=== PATIENT | male | born 1940 | race Hispanic/Latino ===

== ENCOUNTER 2022-02-01 15:03 | Emergency (ER) | payer MEDICARE, BC ==
[2022-02-02 16:35] LABS: SARS-CoV-2 PCR by NAA Not Detected (NotDetected)
== END 2022-02-01 17:11 | disposition home or self-care (01) ==
LOC: CSHERS 15:03
DX: B34.9 Viral infection, unspecified (principal); I10 Essential (primary) hypertension; Z20.822 Contact with and (suspected) exposure to COVID-19; Z86.16 Personal history of COVID-19; Z87.19 Personal history of other diseases of the digestive system; Z86.718 Personal history of other venous thrombosis and embolism; Z87.891 Personal history of nicotine dependence
CPT/HCPCS: 87804 ×2; U0003; U0005; 99283

== ENCOUNTER 2025-10-13 14:04 | Emergency (ER) | payer OTHER, BC ==
[2025-10-13 15:03] LABS: #Basophils Less than 0.03 10x3/uL (0.0-0.2); #Eosinophils 0.46 10x3/uL (0.0-0.5); #Monocytes 0.59 10x3/uL (0.0-1.1); #Neutrophils 2.96 10x3/uL (1.5-8.4); %Basophils 0.4 % (0.0-2.0); %Eosinophils 8.1 % (0.0-6.0); %Lymphocytes 28.6 % (18.0-47.0); %Monocytes 10.4 % (0.0-10.0); %Neutrophils 52.1 % (40.0-75.0); Hematocrit 28.5 % (38.8-50.0); Hemoglobin 9.5 g/dL (13.5-17.5); Mean Corpuscular Hemoglobin 30.2 pg (27.0-33.0); Mean Corpuscular Volume 90.5 fL (81.2-95.1); Platelet Count 141 10x3/uL (150-450); Red Blood Cell (RBC) Count 3.15 10x6/uL (4.32-5.72); White Blood Cell (WBC) Count 5.67 10x3/uL (3.5-10.5)
[2025-10-13 15:19] LABS: ALT (SGPT) 15 U/L (Less than 45); AST (SGOT) 24 U/L (11-34); Albumin 3.2 g/dL (3.1-4.5); Alkaline Phosphatase 143 U/L (40-110); Anion Gap 13 mmol/L (10-20); BUN (Urea Nitrogen) 50 mg/dL (8.4-25.7); Bilirubin, Total 0.4 mg/dL (0.3-1.2); Calc. Creatinine Clearance 0 mL/min (70-130); Calcium 8.3 mg/dL (7.8-10.44); Carbon Dioxide 21 mmol/L (23-31); Chloride 111 mmol/L (98-107); Globulin 3.3 g/dL (2.4-3.5); Glucose 98 mg/dL (83-110); Potassium 4.4 mmol/L (3.5-5.1); Sodium 141 mmol/L (136-145)
[2025-10-13 15:23] LABS: Troponin I Less than 0.010 ng/mL (< 0.028)
== END 2025-10-13 17:17 | disposition home or self-care (01) ==
LOC: CSHERS 14:04
DX: R55 Syncope and collapse (principal); S00.93XA Contusion of unspecified part of head, initial encounter; N17.9 Acute kidney failure, unspecified; I10 Essential (primary) hypertension; Z86.73 Personal history of transient ischemic attack (TIA), and cerebral infarction without residual deficits; Z79.899 Other long term (current) drug therapy; Z95.5 Presence of coronary angioplasty implant and graft; W18.2XXA Fall in (into) shower or empty bathtub, initial encounter
CPT/HCPCS: 70450; 71045; 72125; 80053; 84484; 85025; 93005; 94760